=== PATIENT | male | born 1955 | race Caucasian/White ===

== ENCOUNTER → 2019-01-08 | Outpatient (CLI) | payer OTHER | END | disposition home or self-care (01) | LOC: SHCH 14:53 | PROVIDERS: ATTEND Internal Medicine Cardiovascular Disease | DX: I65.23 Occlusion and stenosis of bilateral carotid arteries (principal) | CPT/HCPCS: 93880 ==

== ENCOUNTER → 2023-05-08 | Outpatient (CLI) | payer BC | END | disposition home or self-care (01) | LOC: SHCH 08:32 | PROVIDERS: ATTEND Internal Medicine Cardiovascular Disease | DX: I11.9 Hypertensive heart disease without heart failure (principal); I25.10 Atherosclerotic heart disease of native coronary artery without angina pectoris; E11.9 Type 2 diabetes mellitus without complications; E78.5 Hyperlipidemia, unspecified; Z95.1 Presence of aortocoronary bypass graft | CPT/HCPCS: 93306 ==

== ENCOUNTER → 2024-10-12 | Outpatient (CLI) | payer OTHER, MEDICARE ==
--- NOTE | 2024-10-14 09:10 | HMCSR ---
APPROVED REPORT EXAM: Two-dimensional and M-mode echocardiogram with Doppler and color Doppler. INDICATION ICD: I25.10 Atherosclerotic heart disease of [place] coronary artery without angina pectoris 2D Dimensions RVDd4.0 cmLVEF(%)44.8 (>50%)LVED Vol(simp.)105.0 mL IVSd1.3 (0.7-1.1cm)FS(%)22 %LVES Vol(simp.)54.0 mL LVDd4.9 (3.8-5.6cm)LA (2D)4.4 (1.6-4.0cm)LVEF(%, simp.)49 % PWd1.1 (0.7-1.1cm)Ao Root(2D)3.3 (2.0-3.7cm)LA ESV INDEX (BP)26.39 mL/m2 LVDs3.8 (2.5-4.0cm)LVOT diam2.1 (1.8-2.4cm) IVC diam1.4 cm Aortic Valve AoV Vmax1.0 m/[place] GR4.3 mmHgLVOT Vmax0.8 m/s AoV VTI0.3 mAo Mean GR2.5 mmHgLVOT VTI0.21 m YVAN (VMAX)2.7 cm2AVA (VTI) 2.7 cm2 Mitral Valve MV E Vmax56.4 cm/sDECEL [id number] ms MV A Vmax45.6 cm/s E/A ratio1.2 MR Max PG112 mmHg TDI E/E' Bzykds20.2E/E' Lateral7.3 Pulmonary Valve PV Vmax1.0 m/sPV VTI0.22 mPV Mean GR2 mmHg PV Peak GR3.7 mmHgPI End Kymber[place]. Kofi 1.5 cm/s Tricuspid Valve TR Vmax2.7 m/sRAP (EST) 3 rmHoDCFA57.4 mmHg TR Peak GR28.4 mmHg Left Ventricle The left ventricle is borderline dilated. There is mild concentric left ventricular hypertrophy. LVEF is 40-45%. No left ventricle thrombus noted on this study. Left ventricular filling pattern is johnny l for age. Right Ventricle The right ventricle is normal size. Right ventricular systolic function is mildly reduced. Atria The left atrium size is normal. The right atrium size is normal. Aortic Valve Aortic valve is trileaflet. Aortic valve leaflets are sclerotic but open well. No aortic regurgitatio n is present. There is no aortic valvular stenosis. Mitral Valve Mitral valve leaflets are mildly sclerotic but open well. Mitral regurgitation is mild. There is no m itral valve stenosis. Tricuspid Valve The tricuspid valve leaflets appear normal. There is trace to mild tricuspid regurgitation. Right troy tricular systolic pressure is estimated at 30-40 mmHg. Pulmonic Valve Pulmonic valve is not well visualized. There is trace to mild valvular regurgitation. Great Vessels The aortic root is normal in size. The IVC is normal in size and collapses >50% with inspiration. Pericardium No pericardial effusion. Conclusion The left ventricle is borderline dilated. LVEF is 40-45%. Right ventricular systolic function is mildly reduced. The left atrium size is normal. Aortic valve is trileaflet. Aortic valve leaflets are sclerotic but open well. No aortic regurgitation is present. Mitral valve leaflets are mildly sclerotic but open well. Mitral regurgitation is mild. There is trace to mild tricuspid regurgitation. Right ventricular systolic pressure is estimated at 30-40 mmHg. There is trace to mild valvular regurgitation. The aortic root is normal in size. The IVC is normal in size and collapses >50% with inspiration. No pericardial effusion.
== END | disposition home or self-care (01) ==
LOC: SHCH 07:39
PROVIDERS: ATTEND Internal Medicine Cardiovascular Disease
DX: I08.8 Other rheumatic multiple valve diseases (principal); I25.10 Atherosclerotic heart disease of native coronary artery without angina pectoris
CPT/HCPCS: 93306

== ENCOUNTER → 2024-11-12 | Outpatient (CLI) | payer OTHER ==
[2024-11-12] MEDS: REGADENOSON 0.4 MG/5 ML PF SYG IVP ONE (11:09)
== END | disposition home or self-care (01) ==
LOC: SHCH 08:24
PROVIDERS: ATTEND Internal Medicine Cardiovascular Disease
DX: I25.10 Atherosclerotic heart disease of native coronary artery without angina pectoris (principal); R06.00 Dyspnea, unspecified
CPT/HCPCS: 78452; 93017; J2785; A9500 ×2